=== PATIENT | male | born 1945 | race Caucasian/White ===

== ENCOUNTER 2017-02-18 14:09 | Inpatient (IN) | payer MEDICARE ==
[2017-02-18] MEDS ORDERED: Morphine INJ* 4 MG/ML 1 ML CARPUJECT IV ONE (14:22)
[2017-02-18] MEDS ORDERED: Ondansetron INJ* 2 MG/ML VIAL IV ONE (14:22)
[2017-02-18 15:06] LABS: Hematocrit 43 % (35-47); Hemoglobin 14.9 g/dl (12.0-16.0); Mean Corpuscular HGB Conc 35 g/dl (31-36); Mean Corpuscular Hemoglobin 31 pg (27-31); Mean Corpuscular Volume 89 fL (80-97); Mean Platelet Volume 9 um3 (7.4-10.4); Red Blood Count 4.88 10^6/ul (4.0-5.4); Red Cell Distribution Width 15 % (10.5-15); White Blood Count 10.8 10^3/ul (3.5-10.8)
[2017-02-18 15:21] LABS: BUN/Creatinine Ratio 19.1 (8-20); Calcium 8.8 mg/dL (8.6-10.3); EGFR African American 69.4 (>60); EGFR Non-African American 53.9 (>60); Potassium 4.4 mmol/L (3.5-5.0)
--- NOTE | 2017-02-18 15:40 | RAD ---
INDICATION: Traumatic right hip fracture COMPARISON: None TECHNIQUE: Multiple views right hip were acquired. FINDINGS: There is an intratrochanteric fracture of the right femur. There is mild distraction. No other fractures are evident. The SI joints and symphysis appear intact. IMPRESSION: INTERTROCHANTERIC FRACTURE RIGHT FEMUR
[2017-02-18] MEDS ORDERED: HYDROmorphone* 1 MG/ML 1 ML CARPUJECT IV SLOW PU ONE ×2 (16:14→18:22)
[2017-02-18] MEDS ORDERED: Dextrose 50% Syringe 50 ML* 25 GM/50 ML SYRINGE IV PUSH PRN (16:31)
[2017-02-18] MEDS ORDERED: Heparin VIAL(*) 5000 UNITS/ML VIAL (FIVE THOUSAND) SUBCUT ONE (16:38)
--- NOTE | 2017-02-18 17:11 | RAD ---
Indication: Preoperative assessment. Fall. RIGHT hip fracture. Comparison: No relevant prior exams available on the [facility] [place] for comparison. Technique: Supine chest 1627 hours Report: Suboptimal inspiration with mild bilateral subsegmental atelectasis. Grossly clear pleural spaces. Negative for cardiomegaly. Unremarkable central pulmonary vasculature and mediastinal contours. IMPRESSION: Suboptimal inspiration with mild subsegmental atelectasis.
--- NOTE | 2017-02-18 17:13 | RAD ---
Indication: Fall. RIGHT knee redness and swelling. RIGHT hip fracture. Comparison: No relevant prior exams available on the [facility] [place] for [place]. Technique: AP and crosstable lateral views RIGHT knee. 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 Minimal suprapatellar joint effusion. Negative for fracture or malalignment. Anterior soft tissue swelling. Mild osteophytosis. Negative for significant joint space narrowing. IMPRESSION: Small joint effusion and soft tissue swelling. Mild osteoarthritis. Negative for fracture.
[2017-02-18] MEDS ORDERED: Ondansetron INJ* 2 MG/ML VIAL IV PRN (17:34)
[2017-02-18] MEDS ORDERED: HYDROmorphone* 1 MG/ML 1 ML CARPUJECT ONE (18:12)
[2017-02-18] MEDS ORDERED: Acetaminophen TAB* 325 MG PO PRN (18:24)
[2017-02-18] MEDS: Insulin GLARGINE(*) 1 UNITS UNIT SUBCUT SCH (18:51)
[2017-02-18] MEDS ORDERED: HYDROmorphone* 1 MG/ML 1 ML CARPUJECT IV SLOW PU PRN ×2 (20:15)
[2017-02-18] MEDS: Terazosin CAP* 5 MG PO SCH (21:05)
[2017-02-18] MEDS: Hydroxychloroquine TAB* 200 MG PO SCH (21:05)
[2017-02-18] MEDS: Gabapentin CAP(*) 100 MG PO SCH (21:06)
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
[2017-02-18] MEDS: HYDROmorphone* 1 MG/ML 1 ML CARPUJECT IV SLOW PU PRN (23:46)
[2017-02-18] MEDS: NS 0.9% 1000 ML* 1,000 ML IV SCH (23:49)
--- NOTE | 2017-02-18 23:59 | CONS ---
CONSULTATION REPORT: DATE OF CONSULT: 02/17/17 HISTORY OF PRESENT ILLNESS: Jag is a very pleasant 71-year-old gentleman who has some mild hemiplegia. He fell today on a single step up in his dining room. He struck his right flank and has been admitted through the emergency room with a right intertrochanteric hip fracture. He did have a previous pelvis fracture a number of years ago, which was treated nonoperatively. He has had no significant pain or arthritic condition of the hip. PAST MEDICAL HISTORY: Jag has diabetes and some high blood pressure. MEDICATIONS: Include: 1. Atenolol. 2. Lipitor. 3. Furosemide. 4. Gabapentin. 5. Lantus and Humalog. 6. Lisinopril. 7. Zofran. 8. He is now on IM heparin. 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 Has a who is quite elderly and has some medical issues as well. PHYSICAL EXAM: Jag is alert and conversant and oriented and in no acute distress. His right lower extremity is flexed at the hip on a pillow, slightly shortened and slightly externally rotated. He has a good posterior and dorsal pulse and intact sensation to light touch, although he claims his primary care doctor has documented decreased sensation in the right and left lower extremities. Skin is intact at the thigh. DIAGNOSTIC STUDIES: His AP pelvis shows an intertrochanteric right hip fracture with displaced lesser trochanter. The lateral view is not discernible. IMPRESSION: The patient is a candidate for right intertrochanteric hip fracture fixation. He is to be admitted to the medical service n.p.o. after midnight. He will require monitoring of his blood glucose, some heparin anticoagulation, and EKG. [id number]/[facility] #: [id number] [facility] PS[facility] CENTERShira
[2017-02-19] MEDS: HYDROmorphone* 1 MG/ML 1 ML CARPUJECT IV SLOW PU PRN ×3 (02:06→09:49)
[2017-02-19] MEDS ORDERED: HYDROMORPHONE 2 MG/ML IV SLOW PU ONE (02:50)
[2017-02-19] MEDS ORDERED: Al Hydrox/Mg Hydrox/Simet LIQ* 30 ML UDC PO ONE (02:50)
[2017-02-19] MEDS: Insulin GLARGINE(*) 1 UNITS UNIT SUBCUT SCH ×3 (06:15→21:12)
[2017-02-19] MEDS ORDERED: LORazepam INJ* 2 MG/ML 1 ML VIAL IV PUSH ONE (06:34)
[2017-02-19 06:47] LABS: Hematocrit 43 % (42-52); Hemoglobin 14.5 g/dl (14.0-18.0); Mean Corpuscular HGB Conc 34 g/dl (31-36); Mean Corpuscular Hemoglobin 30 pg (27-31); Mean Corpuscular Volume 89 fL (80-94); Mean Platelet Volume 9 um3 (7.4-10.4); Red Blood Count 4.85 10^6/ul (4.0-5.4); Red Cell Distribution Width 15 % (10.5-15); White Blood Count 13.5 10^3/ul (3.5-10.8)
[2017-02-19 07:03] LABS: BUN/Creatinine Ratio 21.2 (8-20); Calcium 8.8 mg/dL (8.6-10.3); EGFR African American 78.3 (>60); EGFR Non-African American 60.9 (>60); Potassium 4.7 mmol/L (3.5-5.0)
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
[2017-02-19] MEDS ORDERED: Influenza VAC *QUAD* 2017-18* 0.5 ML SYRINGE IM ONE (09:00)
[2017-02-19] MEDS ORDERED: Lisinopril TAB* 10 MG PO SCH (09:00)
[2017-02-19] MEDS ORDERED: Furosemide TAB* 20 MG PO SCH (09:00)
[2017-02-19] MEDS ORDERED: Furosemide TAB* 40 MG PO SCH (09:00)
[2017-02-19] MEDS: Atorvastatin* 10 MG TAB PO SCH (09:41)
[2017-02-19] MEDS: Hydroxychloroquine TAB* 200 MG PO SCH ×2 (09:41→21:14)
[2017-02-19] MEDS: Atenolol TAB* 25 MG PO SCH (09:41)
[2017-02-19] MEDS: Gabapentin CAP(*) 100 MG PO SCH ×2 (09:41→21:12)
[2017-02-19] MEDS: Insulin LISPRO* 1 UNITS UNIT SUBCUT SCH ×3 (09:42→17:33)
--- NOTE | 2017-02-19 10:18 | RAD ---
INDICATION: Neck pain. Fall COMPARISON: None TECHNIQUE: Crosstable lateral AP and lateral were acquired FINDINGS: Bones: The two-view show no acute bony findings. Suggest completion of the series or CT imaging for persistent concern as indicated. There are arthritic findings from C5 through C7. C7 is not well evaluated due to shoulder artifact. Craniocervical junction: There is no dedicated AP view of the odontoid. Alignment: Normal Disc spaces: Minor lower cervical disc space narrowing Soft tissues: The prevertebral soft tissues are normal. IMPRESSION: 2 VIEW IMAGING OF CERVICAL SPINE DEMONSTRATES DEGENERATIVE CHANGE LOWER CERVICAL SPINE. SUGGEST COMPLETION OF THE SERIES AND/OR CT IMAGING INDICATED
[2017-02-19] MEDS: NS 0.9% 1000 ML* 1,000 ML IV SCH (11:09)
[2017-02-19] MEDS ORDERED: Buffered Lidocaine 0.9% SYRIN* 5 ML/SYR SYRINGE INTRADERM ONE (11:35)
[2017-02-19] MEDS ORDERED: Famotidine IV* 10 MG/ML 2 ML (20 mg) ONE (12:26)
[2017-02-19] MEDS ORDERED: Dexamethasone IV* 4 MG/ML 1 ML (4 MG) ONE (12:26)
[2017-02-19] MEDS ORDERED: Dexamethasone IV* 4 MG/ML 1 ML (4 MG) IV SLOW PU ONE (12:35)
[2017-02-19] MEDS ORDERED: Famotidine IV* 10 MG/ML 2 ML (20 mg) IV ONE (12:35)
[2017-02-19] MEDS ORDERED: KETAMINE HCL* 50 MG/ML 10 ML VIAL ONE (13:59)
[2017-02-19] MEDS ORDERED: Bupivacaine 0.5% SDV PF* 30 ML VIAL ONE (13:59)
[2017-02-19] MEDS ORDERED: fentaNYL* 50 MCG/ML 2 ML VIAL (100 MCG VIAL) ONE ×2 (13:59→19:23)
[2017-02-19] MEDS ORDERED: Phenylephrine IV* 40 MCG/ML 10 ML SYRINGE ONE (13:59)
[2017-02-19] MEDS ORDERED: Ondansetron INJ* 2 MG/ML VIAL ONE (13:59)
[2017-02-19] MEDS ORDERED: Midazolam* 1 MG/ML 5 ML VIAL (5 MG) ONE (13:59)
[2017-02-19] MEDS ORDERED: ceFOXitin 2 GM IVPREMIX* 2 GM/50 ML BAG ONE (14:02)
[2017-02-19] MEDS ORDERED: Propofol* 10 MG/ML 20 ML BTL IV PUSH ONE (14:02)
[2017-02-19] MEDS ORDERED: Lidocaine 1.5% EPI 1:200,000* 30 ML SDV ONE (14:37)
[2017-02-19] MEDS ORDERED: Ondansetron INJ* 2 MG/ML VIAL IV PRN (16:06)
[2017-02-19] MEDS ORDERED: HYDROmorphone* 1 MG/ML 1 ML CARPUJECT IV PRN (16:06)
[2017-02-19] MEDS ORDERED: DiMENhydriNATE IV* 50 MG/ML VIAL IV PUSH PRN (16:06)
[2017-02-19] MEDS ORDERED: Bisacodyl SUPP* 10 MG SUPP PR PRN (16:48)
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
--- NOTE | 2017-02-19 18:01 | RAD ---
INDICATION: RIGHT hip fracture. COMPARISON: February 18, 2017 radiographs. TECHNIQUE: 181 seconds fluoroscopy. FINDINGS: Spot images document placement of a gamma nail across the intratrochanteric fracture of the RIGHT femur. IMPRESSION: Procedural fluoroscopy. CPT II Codes: 6045F
[2017-02-19] MEDS: fentaNYL* 50 MCG/ML 2 ML VIAL (100 MCG VIAL) IV PRN ×2 (19:24→19:30)
[2017-02-19] MEDS: Docusate CAP* 100 MG PO SCH (21:12)
[2017-02-19] MEDS: Terazosin CAP* 5 MG PO SCH (21:12)
[2017-02-19] MEDS: oxyCODONE/Acetamin 5/325 MG* TAB PO PRN (22:29)
[2017-02-19] MEDS: ceFAZolin 1 GM VIAL(*) 1 GM in NS 0.9% 50 ML* 50 ML IVPB SCH (23:37)
[2017-02-20] MEDS: HYDROmorphone* 1 MG/ML 1 ML CARPUJECT IV SLOW PU PRN ×3 (01:10→19:48)
[2017-02-20 06:04] LABS: Hematocrit 36 % (42-52); Hemoglobin 12.3 g/dl (14.0-18.0)
[2017-02-20 06:20] LABS: BUN/Creatinine Ratio 22.9 (8-20); Calcium 8.5 mg/dL (8.6-10.3); EGFR African American 85.8 (>60); EGFR Non-African American 66.7 (>60); Potassium 4.7 mmol/L (3.5-5.0)
[2017-02-20] MEDS: ceFAZolin 1 GM VIAL(*) 1 GM in NS 0.9% 50 ML* 50 ML IVPB SCH ×2 (06:35→15:41)
[2017-02-20] MEDS: oxyCODONE/Acetamin 5/325 MG* TAB PO PRN ×3 (06:46→18:10)
[2017-02-20] MEDS: Insulin GLARGINE(*) 1 UNITS UNIT SUBCUT SCH ×2 (08:22→19:44)
[2017-02-20] MEDS: Insulin LISPRO* 1 UNITS UNIT SUBCUT SCH ×3 (08:24→18:11)
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
--- NOTE | 2017-02-20 09:03 | PN ---
Progress Note - Progress Note Date of Service: 02/20/17 SOAP: Subjective: []Patient is seen at bedside, having US for new IV access. Tolerating right hip pain. Denies SOB, CP, dizziness. Objective: [] Vital Signs Temp 99.5 F 02/20/17 07:49 Pulse 62 02/20/17 07:49 Resp 18 02/20/17 07:49 BP 131/48 02/20/17 07:49 Pulse Ox 94 02/20/17 07:49 Intake & Output 02/19/17 02/20/17 02/20/17 18:59 06:59 18:59 Intake Total 1999 1257 Output Total 2225 Balance 1999 - Intake: IV Fluids 1999 544 LR 1999 NS 544 IVPB 53 Cefazolin 53 Oral 660 Output: Mane 2225 Other: # Bowel Movements 0 Laboratory Results - last 24 hr 02/19/17 02/19/17 02/19/17 11:35 12:51 21:02 Hgb Hct Sodium Potassium Chloride Carbon Dioxide Anion Gap BUN Creatinine Est GFR ( Amer) Est GFR (Non-Af Amer) BUN/Creatinine Ratio Glucose POC Glucose (mg/dL) 148 H 145 H 115 H Calcium 02/20/17 02/20/17 02/20/17 05:55 05:55 07:31 Hgb 12.3 L Hct 36 L Sodium 137 Potassium 4.7 Chloride 107 Carbon Dioxide 27 Anion Gap 3 BUN 25 H Creatinine 1.09 Est GFR ( Amer) 85.8 Est GFR (Non-Af Amer) 66.7 BUN/Creatinine Ratio 22.9 H Glucose 167 H POC Glucose (mg/dL) 145 H Calcium 8.5 L Right hip dressings are dry and intact +DF/PF right ankle calf NT and soft sensation and circulation intact RLE Assessment: []s/p IM nail of IT fracture right hip POD #1 Plan: []PT/OT RLE WBAT Lovenox
[2017-02-20] MEDS: Hydroxychloroquine TAB* 200 MG PO SCH ×2 (10:56→19:47)
[2017-02-20] MEDS: Atenolol TAB* 25 MG PO SCH (10:56)
[2017-02-20] MEDS: Gabapentin CAP(*) 100 MG PO SCH ×2 (10:56→19:45)
[2017-02-20] MEDS: Docusate CAP* 100 MG PO SCH ×2 (10:56→19:47)
[2017-02-20] MEDS: Atorvastatin* 10 MG TAB PO SCH (10:57)
[2017-02-20] MEDS: Vitamin THERAPEUTIC TAB PO SCH (10:57)
[2017-02-20] MEDS: Enoxaparin(*) 40 MG/0.4 ML SYR SUBCUT SCH (11:01)
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
[2017-02-20] MEDS: Terazosin CAP* 5 MG PO SCH (19:46)
[2017-02-21] MEDS: oxyCODONE/Acetamin 5/325 MG* TAB PO PRN ×3 (05:23→21:04)
[2017-02-21 07:03] LABS: Hematocrit 32 % (42-52); Hemoglobin 11.1 g/dl (14.0-18.0)
--- NOTE | 2017-02-21 08:14 | PN ---
Progress Note - Progress Note Date of Service: 02/21/17 SOAP: Subjective: 71 y/o male s/p R hip ORIF with IM nailing 02/19/[address] Sawyer. Patient overall feelign well, c/o neck pain. no questions/ concerns. VSS overnight, afebrile. Objective: General- resting in chair, fatigued appearing MSK - surgical dressing removed L hip, 3 surgical incision c/d/i, amber in place, mild edema around distal 2 incision, minimal tenderness, mild ecchymosis around proximal incision. PT 2+ b/l, neg homans, + mild edema b/l LEs. + DF/ PF. Vital Signs Temp 98.5 F 02/21/17 03:44 Pulse 73 02/21/17 03:44 Resp 18 02/21/17 05:23 BP 144/45 02/21/17 03:44 Pulse Ox 94 02/21/17 03:44 Intake & Output 02/20/17 02/21/17 02/21/17 18:59 06:59 18:59 Intake Total 2155 650 Output Total 575 875 Balance 1580 -225 Intake: IV Fluids 1110 LR 1110 IVPB 55 LR 55 Oral 990 650 Output: Urine 575 875 Other: # Bowel Movements 0 0 Laboratory Results - last 24 hr 02/20/17 02/20/17 02/21/17 11:24 17:22 06:35 Hgb 11.1 L Hct 32 L POC Glucose (mg/dL) 223 H 152 H Assessment: 71 y/o male s/p R hip ORIF with IM nailing 02/19/[address] Sawyer. Plan: - DVT prophy- Lovenox in house - H&H stable - DM- controlled with insulin, hospitalist managing - Likely d/c when placement approved, cleared from ortho standpoint Active Medications Generic Name Dose Route Start Last Admin Trade Name Freq PRN Reason Stop Dose Admin Acetaminophen 650 mg 02/18/17 18:24 02/18/17 21:06 Tylenol Tab* PO 650 mg Q6H PRN Administration PAIN Atenolol 25 mg 02/19/17 09:00 02/20/17 10:56 Tenormin Tab* PO 25 mg DAILY SANG Administration Atorvastatin Calcium 10 mg 02/19/17 09:00 02/20/17 10:57 Lipitor* PO 10 mg DAILY SANG Administration Protocol Bisacodyl 10 mg 02/19/17 16:48 Dulcolax Supp* FL DAILY PRN constipation Dextrose 12.5 gm 02/18/17 16:31 D50w Syringe 50 Ml* IV PUSH .FOR FS < 60 - SS PRN FS < 60 Docusate Sodium 100 mg 02/19/17 21:00 02/20/17 19:47 Colace Cap* PO 100 mg BID SANG Administration Enoxaparin Sodium 40 mg 02/20/17 09:00 02/20/17 11:01 Lovenox(*) SUBCUT 40 mg Q24H SANG Administration Gabapentin 200 mg 02/18/17 21:00 02/20/17 19:45 Neurontin Cap(*) PO 200 mg BID SANG Administration Hydromorphone HCl 1 mg 02/18/17 23:41 02/20/17 19:48 Dilaudid Iv* IV SLOW PU 1 mg Q2H PRN Administration PAIN Hydroxychloroquine Sulfate 200 mg 02/18/17 21:00 02/20/17 19:47 Plaquenil Tab* PO 200 mg BID SANG Administration Lactated Ringer's 1,000 mls @ 100 mls/hr 02/19/17 17:00 02/20/17 08:58 Lactated Ringers 1000 Ml Bag* IV 100 mls/hr PER RATE SANG Administration Insulin Glargine 90 units 02/19/17 08:00 02/20/17 19:44 Lantus(*) SUBCUT 90 units 0800,2000 SANG Administration Insulin Human Lispro 0 units 02/19/17 07:30 02/20/17 18:11 Humalog* SUBCUT 3 units AC SANG Administration Protocol Lactulose 30 ml 02/19/17 16:48 Lactulose* PO Q6H PRN constipation Multivitamins 1 tab 02/20/17 09:00 02/20/17 10:57 Theragran Tab* PO 1 tab DAILY [facility] Administration Ondansetron HCl 4 mg 02/18/17 17:34 02/19/17 03:01 Zofran Inj* IV 4 mg Q4H PRN Administration NAUSEA Oxycodone/Acetaminophen 1 tab 02/19/17 16:51 02/20/17 18:10 Percocet 5/325 Tab* PO 1 tab Q4H PRN Administration PAIN Oxycodone/Acetaminophen 2 tab 02/19/17 16:51 02/21/17 05:23 Percocet 5/325 Tab* PO 2 tab Q6H PRN Administration PAIN Terazosin HCl 10 mg 02/18/17 21:00 02/20/17 19:46 Hytrin Cap* PO 10 mg BEDTIME SANG Administration <Henrietta Campos - Last Filed: 02/21/17 12:12> - Progress Note SOAP: Subjective: Right hip more comfortable. Patient doesn't like foam tape. Objective: NAD RLE: - dressing c/d/i - NVID Assessment: POD 2 R hip intertroch fracture ORIF with IMN Plan: - Lovenox x 4 weeks postop - WBAT RLE - PT, OOB - Pain control with narcotics - Discharge planning - F/u in clinic with me 2 week postop - Ancef 1gm x 3 doses postop - DM manage per medicine <Warner Ferguson - Last Filed: 02/21/17 14:15>
[2017-02-21] MEDS: Insulin LISPRO* 1 UNITS UNIT SUBCUT SCH ×3 (08:32→17:13)
[2017-02-21] MEDS: Atenolol TAB* 25 MG PO SCH (09:31)
[2017-02-21] MEDS: Atorvastatin* 10 MG TAB PO SCH (09:31)
[2017-02-21] MEDS: Docusate CAP* 100 MG PO SCH ×2 (09:31→21:05)
[2017-02-21] MEDS: Insulin GLARGINE(*) 1 UNITS UNIT SUBCUT SCH ×2 (09:31→19:32)
[2017-02-21] MEDS: Hydroxychloroquine TAB* 200 MG PO SCH ×2 (09:31→21:05)
[2017-02-21] MEDS: Vitamin THERAPEUTIC TAB PO SCH (09:31)
[2017-02-21] MEDS: Gabapentin CAP(*) 100 MG PO SCH ×2 (09:31→21:05)
[2017-02-21] MEDS: Enoxaparin(*) 40 MG/0.4 ML SYR SUBCUT SCH (09:39)
[2017-02-21] MEDS: HYDROmorphone* 1 MG/ML 1 ML CARPUJECT IV SLOW PU PRN (17:08)
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
[2017-02-21] MEDS: Terazosin CAP* 5 MG PO SCH (21:05)
[2017-02-21] MEDS: Metaxalone TAB* 800 MG PO PRN (21:42)
[2017-02-22] MEDS: oxyCODONE/Acetamin 5/325 MG* TAB PO PRN ×4 (03:48→20:06)
[2017-02-22 07:01] LABS: Hematocrit 29 % (42-52); Hemoglobin 9.9 g/dl (14.0-18.0)
[2017-02-22] MEDS: Insulin LISPRO* 1 UNITS UNIT SUBCUT SCH ×3 (08:16→18:00)
[2017-02-22] MEDS: Docusate CAP* 100 MG PO SCH ×2 (08:41→20:03)
[2017-02-22] MEDS: Hydroxychloroquine TAB* 200 MG PO SCH ×2 (08:41→20:04)
[2017-02-22] MEDS: Vitamin THERAPEUTIC TAB PO SCH (08:41)
[2017-02-22] MEDS: Gabapentin CAP(*) 100 MG PO SCH ×2 (08:41→20:05)
[2017-02-22] MEDS: Insulin GLARGINE(*) 1 UNITS UNIT SUBCUT SCH ×2 (08:41→20:07)
[2017-02-22] MEDS: Enoxaparin(*) 40 MG/0.4 ML SYR SUBCUT SCH (08:41)
[2017-02-22] MEDS: Atorvastatin* 10 MG TAB PO SCH (08:42)
[2017-02-22] MEDS: Atenolol TAB* 25 MG PO SCH (08:42)
[2017-02-22] MEDS: HYDROmorphone* 1 MG/ML 1 ML CARPUJECT IV SLOW PU PRN (11:37)
--- NOTE | 2017-02-22 11:46 | PN ---
Progress Note - Progress Note Date of Service: 02/22/17 SOAP: Subjective: 71 y/o male s/p R hip ORIF with IM nailing on 02/19/2017. Right hip more comfortable. He complains of neck pain. No other questions or concerns. VSS, afebrile Objective: General- resting in chair, fatigued appearing MSK - surgical dressing removed L hip, 3 surgical incision c/d/i, amber in place, mild edema around distal 2 incision, minimal tenderness, mild ecchymosis around proximal incision. PT 2+ b/l, neg homans, + mild edema b/l LEs. + DF/ PF. Vital Signs Temp 98.4 F 02/22/17 07:33 Pulse 64 02/22/17 07:33 Resp 18 02/22/17 11:37 BP 137/49 02/22/17 07:33 Pulse Ox 97 02/22/17 08:00 Intake & Output 02/21/17 02/22/17 02/22/17 18:59 06:59 18:59 Intake Total 450 870 410 Output Total 200 400 500 Balance 250 470 -90 Intake: Oral 450 870 410 Output: Urine 200 400 500 Other: Estimated Void Large # Bowel Movements 0 Estimated Stool Amount Large # Voids 1 Assessment: POD 3 R hip intertroch fracture ORIF with IMN Plan: - Awaiting PMRU placement - Lovenox x 4 weeks postop - WBAT RLE - PT, OOB - Pain control with narcotics - Discharge planning - F/u in clinic with me 2 week postop - Ancef 1gm x 3 doses postop - DM- controlled with insulin, hospitalist managing
[2017-02-22] MEDS: Metaxalone TAB* 800 MG PO PRN (13:07)
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
[2017-02-22] MEDS: Terazosin CAP* 5 MG PO SCH (20:05)
[2017-02-22] MEDS ORDERED: Senna TAB PO ONE (21:00)
[2017-02-23] MEDS: oxyCODONE/Acetamin 5/325 MG* TAB PO PRN ×6 (00:05→22:07)
[2017-02-23] MEDS: Atorvastatin* 10 MG TAB PO SCH (07:57)
[2017-02-23] MEDS: Docusate CAP* 100 MG PO SCH ×2 (07:57→19:40)
[2017-02-23] MEDS: Gabapentin CAP(*) 100 MG PO SCH ×2 (07:57→20:29)
[2017-02-23] MEDS: Insulin GLARGINE(*) 1 UNITS UNIT SUBCUT SCH ×2 (07:57→20:30)
[2017-02-23] MEDS: Hydroxychloroquine TAB* 200 MG PO SCH ×2 (07:57→21:18)
[2017-02-23] MEDS: Vitamin THERAPEUTIC TAB PO SCH (07:58)
[2017-02-23] MEDS: Enoxaparin(*) 40 MG/0.4 ML SYR SUBCUT SCH (07:58)
[2017-02-23] MEDS: Atenolol TAB* 25 MG PO SCH (07:58)
[2017-02-23 08:41] LABS: Hematocrit 28 % (42-52); Hemoglobin 9.7 g/dl (14.0-18.0); Mean Corpuscular HGB Conc 35 g/dl (31-36); Mean Corpuscular Hemoglobin 31 pg (27-31); Mean Corpuscular Volume 89 fL (80-94); Mean Platelet Volume 9 um3 (7.4-10.4); Red Blood Count 3.17 10^6/ul (4.0-5.4); Red Cell Distribution Width 15 % (10.5-15); White Blood Count 9.5 10^3/ul (3.5-10.8)
[2017-02-23] MEDS: Insulin LISPRO* 1 UNITS UNIT SUBCUT SCH ×3 (08:50→17:53)
[2017-02-23 08:56] LABS: BUN/Creatinine Ratio 24.7 (8-20); Calcium 8.4 mg/dL (8.6-10.3); EGFR African American 98.1 (>60); EGFR Non-African American 76.3 (>60); Potassium 4.1 mmol/L (3.5-5.0)
--- NOTE | 2017-02-23 09:07 | PN ---
Progress Note - Progress Note Date of Service: 02/23/17 SOAP: Subjective: 71 y/o male s/p R hip ORIF with IM nailing on 02/19/2017. He complains of neck pain and some right hip pain. No other questions or concerns. VSS, afebrile Objective: General- resting in chair, fatigued appearing MSK - surgical dressing c/d/i, minimal tenderness. PT 2+ b/l, neg homans, + mild edema b/l LEs. + DF/PF. Vital Signs Temp 98.4 F 02/23/17 03:57 Pulse 67 02/23/17 03:57 Resp 18 02/23/17 07:57 BP 159/57 02/23/17 03:57 Pulse Ox 95 02/23/17 03:57 Intake & Output 02/22/17 02/23/17 02/23/17 18:59 06:59 18:59 Intake Total 1170 760 Output Total 1100 850 225 Balance 70 -90 -225 Intake: Oral 1170 760 Output: Urine 1100 850 225 Other: Estimated Void Medium # Bowel Movements 0 Estimated Stool Amount Medium # Voids 1 Assessment: POD 3 R hip intertroch fracture ORIF with IMN Plan: - Awaiting PMRU placement - Lovenox x 4 weeks postop - WBAT RLE - PT, OOB - Pain control with narcotics - Discharge planning - F/u in clinic with Dr. Ferguson 2 week postop - DM- controlled with insulin, hospitalist managing
--- NOTE | 2017-02-23 12:01 | ED ---
Drake Panda Alfonso, scribed for Kev Canchola MD on 02/18/17 at 1430 . Adult Trauma - HPI Summary HPI Summary: This patient is a 71 year old F BIBA to [facility] with a chief complaint of right hip pain since approximately one hour ago. He took a step down into the kitchen , slipped, and fell. The patient rates the pain 8/10 in severity. Symptoms aggravated by movement. Symptoms alleviated by nothing. Patient reports right side paralysis (chronic). Patient denies dizziness, lightheadedness, SOB, and CP. PMHx includes DM, HTN, and TBI. - History of Current Complaint Chief Complaint: EDExtremityLower Stated Complaint: FALL HIP PAIN Time Seen by Provider: 02/18/17 14:17 Hx Obtained From: Patient Mechanism of Injury: Fall Onset/Duration: Started Hours Ago - 1, Traumatic, Still Present Onset of Pain: Prior to Arrival Onset Severity: Moderate Current Severity: Moderate Pain Intensity: 8 Pain Scale Used: 0-10 Numeric Location: Abdomen/Pelvis - Right hip Aggravating Factor(s): Movement Alleviating Factor(s): Nothing Associated Signs & Symptoms: Positive: Other: - right side paralysis (chronic). Patient denies dizziness, lightheadedness, SOB, and CP. - Allergy/Home Medications Allergies/Adverse Reactions: Allergies Allergy/AdvReac Type Severity Reaction Status Date / Time No Known Allergies Allergy Verified 02/18/17 15:12 PMH/Surg Hx/FS Hx/Imm Hx Endocrine/Hematology History: Reports: Hx Diabetes Cardiovascular History: Reports: Hx Hypertension Neurological History: Reports: Other Neuro Impairments/Disorders - Traumatic brain injury Infectious Disease History: No Infectious Disease History: Denies: Traveled Outside the [place] in Last 30 Days - Family History Known Family History: Positive: Unknown - ADOPTED - Social History Alcohol Use: None Substance Use Type: Reports: None Hx Tobacco Use: No Review of Systems Negative: Fever, Chills Negative: Erythema Negative: Sore Throat Negative: Chest Pain Negative: Shortness Of Breath, Cough Negative: Abdominal Pain, Vomiting, Nausea Negative: dysuria, hematuria Positive: Other - Right hip pain Negative: Rash Neurological: Other - right side paralysis (chronic); negative dizziness, lightheadedness All Other Systems Reviewed And Are Negative: Yes Physical Exam Triage Information Reviewed: Yes Vital Signs On Initial Exam: Initial Vitals Temp Pulse Resp BP Pulse Ox 97.2 F 49 14 166/61 98 02/18/17 14:19 02/18/17 14:19 02/18/17 14:19 02/18/17 14:19 02/18/17 14:19 Vital Signs Reviewed: Yes Appearance: Positive: Well-Appearing, No Pain Distress, Well-Nourished Skin: Positive: Warm, Dry, Other - Scabbed over wounds at lower extremities. Head/Face: Positive: Other - Normocephalic; No Racoons eyes; No battles sign; No abrasion; No contusion; No hemotympanum; No maxilla facial tenderness or instability; Dentition are smooth; No dental trauma; No trismus Eyes: Positive: Other: - EOM normal, PERRL ENT: Positive: Normal ENT inspection Neck: Positive: Other: - Trachea is midline. No stridor; No JVD; No step off; No posterior cervical spine tenderness Respiratory/Lung Sounds: Positive: Other - Effort normal; Breath sounds normal; Equal chest rise; No flail segment; No rib tenderness; No sternal tenderness Cardiovascular: Positive: Other - Rhythm regular, rate normal Heart sounds normal; Intact distal pulses; The pedal pulses are 2+ and symmetric. Radial pulses are 2+ and symmetric. Abdomen Description: Positive: Other: - Soft, Appearance normal. No distension; No tenderness; No palpable pulsatile mass; No Cullens sign; No Lacy-Turners sign Musculoskeletal: Positive: Other - Unable to lift right leg. Right anterior and lateral hip tenderness. Full ROM and no tenderness at ankles, shoulders, elbows and knees; No joint swelling; No vertebral body tenderness; No paraspinal tenderness; No step off or deformity of the spine; Pelvis is stable to lateral compression and rock Neurological: Positive: Alert, Oriented to Person Place, Time Psychiatric: Positive: Affect/Mood Appropriate Diagnostics - Vital Signs Vital Signs Temp Pulse Resp BP Pulse Ox 02/18/17 14:19 97.2 F 49 14 166/61 98 - Laboratory Result Diagrams: 02/18/17 14:54 02/18/17 14:54 Lab Statement: Any lab studies that have been ordered have been reviewed, and results considered in the medical decision making process. - Radiology Hip X-Ray Radiology Interpretation Completed By: ED Physician - intertrochanteric hip fracture of the right side., Radiologist - INTERTROCHANTERIC FRACTURE RIGHT FEMUR - EKG 1442 Cardiac Rate: Bradycardia - 51 BPM EKG Rhythm: Sinus Bradycardia EKG Interpretation: No STEMI. Adult Trauma Course/Dx - Course Assessment/Plan: This patient is a 71 year old F BIBA to [facility] with a chief complaint of right hip pain since approximately one hour ago. He took a step down into the kitchen, slipped, and fell. The patient rates the pain 8/10 in severity. Symptoms aggravated by movement. Symptoms alleviated by nothing. Patient reports right side paralysis (chronic). Patient denies dizziness, lightheadedness, SOB, and CP. PMHx includes DM, HTN, and TBI. An EKG reveals sinus bradycardia. Hip X-Ray reveals intertrochanteric hip fracture of the right side. Consulted Dr. Cid (hospitalist) who agrees to admit. The patient is agreeable with this plan. - Diagnoses Provider Diagnoses: Intertrochanteric fracture of right hip - Physician Notifications Discussed Care Of Patient With: Veda Cid Time Discussed With Above Provider: 15:35 Instructed by Provider To: Other - Consulted Dr. Cid (hospitalist) who agrees to admit. Discharge - Discharge Plan Condition: Stable Disposition: ADMITTED TO [facility] Referrals: Non Staff,Doctor [Primary Care Provider] - The documentation as recorded by the Drake hyatt Alfonso accurately reflects the service I personally performed and the decisions made by me, Kev Canchola MD.
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
[2017-02-23] MEDS ORDERED: Lisinopril TAB* 10 MG PO ONE (20:00)
[2017-02-23] MEDS: Terazosin CAP* 5 MG PO SCH (20:29)
[2017-02-23] MEDS ORDERED: Magnesium Hydroxide LIQ* 30 ML UDC PO ONE (21:00)
[2017-02-23] MEDS ORDERED: Albuterol 2.5 MG/3 ML NEB.SOL* (0.083%) INH PRN (21:34)
[2017-02-24] MEDS: Metaxalone TAB* 800 MG PO PRN ×3 (00:33→23:49)
[2017-02-24] MEDS: oxyCODONE/Acetamin 5/325 MG* TAB PO PRN ×4 (04:41→23:06)
--- NOTE | 2017-02-24 07:51 | PN ---
Progress Note - Progress Note Date of Service: 02/24/17 SOAP: Subjective: 71 y/o male s/p R hip ORIF with IM nailing 02/19/[address] Sawyer. Patient feeling well, reports feeling confused this AM, thinking it was dinner instead of breakfast but feeling well, alert now. NO complaints. VSS afebrile overnight Objective: General- Well appearing, resting in bed comfortably MSK- SUrgical incision c/d/i, mild resolving ecchymosis around incision site, + DF/ PF b/l, neg homans b/l, sensation grossly intact. Vital Signs Temp 97.6 F 02/24/17 03:32 Pulse 61 02/24/17 03:32 Resp 17 02/24/17 04:41 BP 146/48 02/24/17 03:32 Pulse Ox 93 02/24/17 03:32 Intake & Output 02/23/17 02/24/17 02/24/17 18:59 06:59 18:59 Intake Total 660 1020 Output Total 225 525 Balance 435 495 Intake: Oral 660 1020 Output: Urine 225 525 Other: Estimated Void Large # Bowel Movements 1 1 Estimated Stool Amount Large Large # Voids 1 Laboratory Results - last 24 hr 02/23/17 02/23/17 02/23/17 08:14 08:14 12:18 WBC 9.5 RBC 3.17 L Hgb 9.7 L Hct 28 L MCV 89 MCH 31 MCHC 35 RDW 15 Plt Count 134 L MPV 9 Neut % (Auto) 75.4 Lymph % (Auto) 8.1 L [place] % (Auto) 8.1 Eos % (Auto) 7.7 H Baso % (Auto) 0.7 Absolute Neuts (auto) 7.2 Absolute Lymphs (auto) 0.8 L Absolute Monos (auto) 0.8 Absolute Eos (auto) 0.7 H Absolute Basos (auto) 0.1 Absolute Nucleated RBC 0.01 Nucleated RBC % 0.1 Sodium 136 Potassium 4.1 Chloride 105 Carbon Dioxide 28 Anion Gap 3 BUN 24 Creatinine 0.97 Est GFR ( Amer) 98.1 Est GFR (Non-Af Amer) 76.3 BUN/Creatinine Ratio 24.7 H Glucose 127 H POC Glucose (mg/dL) 209 H Calcium 8.4 L 02/23/17 16:37 WBC RBC Hgb Hct MCV MCH MCHC RDW Plt Count MPV Neut % (Auto) Lymph % (Auto) [place] % (Auto) Eos % (Auto) Baso % (Auto) Absolute Neuts (auto) Absolute Lymphs (auto) Absolute Monos (auto) Absolute Eos (auto) Absolute Basos (auto) Absolute Nucleated RBC Nucleated RBC % Sodium Potassium Chloride Carbon Dioxide Anion Gap BUN Creatinine Est GFR ( Amer) Est GFR (Non-Af Amer) BUN/Creatinine Ratio Glucose POC Glucose (mg/dL) 226 H Calcium Assessment: Stable 71 y/o male s/p R hip ORIF with IM nailing 02/19/[address] Sawyer. Plan: - Awaiting placement - Follow up with Dr. Ferguson before 03/05 - DM control per hospiatlists - DVT prophylaxis- lovenox in house Active Medications Generic Name Dose Route Start Last Admin Trade Name Freq PRN Reason Stop Dose Admin Acetaminophen 650 mg 02/18/17 18:24 02/18/17 21:06 Tylenol Tab* PO 650 mg Q6H PRN Administration PAIN Albuterol 2.5 mg 02/23/17 21:34 Ventolin 2.5 Mg/3 Ml Neb.Sary* INH Q2H PRN SOB/WHEEZING Atenolol 25 mg 02/19/17 09:00 02/23/17 07:58 Tenormin Tab* PO 25 mg DAILY [facility] Administration Atorvastatin Calcium 10 mg 02/19/17 09:00 02/23/17 07:57 Lipitor* PO 10 mg DAILY [facility] Administration Protocol Bisacodyl 10 mg 02/19/17 16:48 Dulcolax Supp* [place] DAILY PRN constipation Dextrose 12.5 gm 02/18/17 16:31 D50w Syringe 50 Ml* IV PUSH .FOR FS < 60 - SS PRN FS < 60 Docusate Sodium 100 mg 02/19/17 21:00 02/23/17 19:40 Colace Cap* PO 100 mg BID [facility] Administration Enoxaparin Sodium 40 mg 02/20/17 09:00 02/23/17 07:58 Lovenox(*) SUBCUT 40 mg Q24H [facility] Administration Gabapentin 200 mg 02/18/17 21:00 02/23/17 20:29 Neurontin Cap(*) PO 200 mg BID [facility] Administration Hydroxychloroquine Sulfate 200 mg 02/18/17 21:00 02/23/17 21:18 Plaquenil Tab* PO 200 mg BID [facility] Administration Insulin Glargine 90 units 02/19/17 08:00 02/23/17 20:30 Lantus(*) SUBCUT 90 units 0800,1999 [facility] Administration Insulin Human Lispro 0 units 02/19/17 07:30 02/23/17 17:53 Humalog* SUBCUT 6 units AC [facility] Administration Protocol Lactulose 30 ml 02/19/17 16:48 02/23/17 19:43 Lactulose* PO 30 ml Q6H PRN Administration constipation Lisinopril 10 mg 02/24/17 09:00 Prinivil Tab* PO DAILY [facility] Metaxalone 800 mg 02/21/17 21:27 02/24/17 00:33 Skelaxin Tab* PO 800 mg BID PRN Administration SPASMS Multivitamins 1 tab 02/20/17 09:00 02/23/17 07:58 Theragran Tab* PO 1 tab DAILY [facility] Administration Ondansetron HCl 4 mg 02/18/17 17:34 02/19/17 03:01 Zofran Inj* IV 4 mg Q4H PRN Administration NAUSEA Oxycodone/Acetaminophen 1 tab 02/19/17 16:51 02/21/17 21:04 Percocet 5/325 Tab* PO 1 tab Q4H PRN Administration PAIN Oxycodone/Acetaminophen 2 tab 02/22/17 16:08 02/24/17 04:41 Percocet 5/325 Tab* PO 2 tab Q4H PRN Administration PAIN Terazosin HCl 10 mg 02/18/17 21:00 02/23/17 20:29 Hytrin Cap* PO 10 mg BEDTIME [facility] Administration
[2017-02-24] MEDS: Insulin GLARGINE(*) 1 UNITS UNIT SUBCUT SCH ×2 (08:11→20:38)
[2017-02-24] MEDS: Insulin LISPRO* 1 UNITS UNIT SUBCUT SCH ×4 (08:13→18:49)
[2017-02-24 08:32] LABS: Hematocrit 28 % (42-52); Hemoglobin 9.9 g/dl (14.0-18.0)
[2017-02-24 08:41] LABS: Comments Flag Yes
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
[2017-02-24] MEDS: Atorvastatin* 10 MG TAB PO SCH (09:02)
[2017-02-24] MEDS: Atenolol TAB* 25 MG PO SCH (09:02)
[2017-02-24] MEDS: Hydroxychloroquine TAB* 200 MG PO SCH ×2 (09:04→20:37)
[2017-02-24] MEDS: Gabapentin CAP(*) 100 MG PO SCH ×2 (09:04→20:37)
[2017-02-24] MEDS: Docusate CAP* 100 MG PO SCH ×2 (09:04→20:38)
[2017-02-24] MEDS: Enoxaparin(*) 40 MG/0.4 ML SYR SUBCUT SCH (09:06)
[2017-02-24] MEDS: Lisinopril TAB* 10 MG PO SCH (09:10)
[2017-02-24] MEDS: Vitamin THERAPEUTIC TAB PO SCH (09:10)
[2017-02-24] MEDS ORDERED: diPHENhydraMINE IV* 50 MG/ML 1 ml VIAL (BENADRYL) SLOW PUSH ONE (11:52)
[2017-02-24] MEDS ORDERED: diPHENhydraMINE IV* 50 MG/ML 1 ml VIAL (BENADRYL) SLOW PUSH PRN (11:52)
[2017-02-24] MEDS: Terazosin CAP* 5 MG PO SCH (20:37)
[2017-02-25] MEDS: oxyCODONE/Acetamin 5/325 MG* TAB PO PRN ×4 (06:11→22:09)
[2017-02-25] MEDS: Enoxaparin(*) 40 MG/0.4 ML SYR SUBCUT SCH (08:45)
[2017-02-25] MEDS: Lisinopril TAB* 10 MG PO SCH (08:46)
[2017-02-25] MEDS: Hydroxychloroquine TAB* 200 MG PO SCH ×2 (08:46→20:57)
[2017-02-25] MEDS: Gabapentin CAP(*) 100 MG PO SCH ×2 (08:46→20:57)
[2017-02-25] MEDS: Atenolol TAB* 25 MG PO SCH (08:46)
[2017-02-25] MEDS: Docusate CAP* 100 MG PO SCH ×2 (08:46→20:57)
[2017-02-25] MEDS: Vitamin THERAPEUTIC TAB PO SCH (08:47)
[2017-02-25] MEDS: Metaxalone TAB* 800 MG PO PRN (08:52)
--- NOTE | 2017-02-25 08:57 | PN ---
Progress Note - Progress Note Date of Service: 02/25/17 SOAP: Subjective: resting comfortably with no complaints Objective: Vital Signs Temp Pulse Resp BP Pulse Ox 98.3 F 60 18 142/51 100 02/25/17 07:26 02/25/17 07:26 02/25/17 08:52 02/25/17 07:26 02/25/17 08:00 Laboratory Last Values WBC 9.5 10^3/ul (3.5-10.8) 02/23/17 08:14 RBC 3.17 10^6/ul (4.0-5.4) L 02/23/17 08:14 Hgb 9.9 g/dl (14.0-18.0) L 02/24/17 08:00 Hct 28 % (42-52) L 02/24/17 08:00 MCV 89 fL (80-94) 02/23/17 08:14 MCH 31 pg (27-31) 02/23/17 08:14 MCHC 35 g/dl (31-36) 02/23/17 08:14 RDW 15 % (10.5-15) 02/23/17 08:14 Plt Count 134 10^3/ul (150-450) L 02/23/17 08:14 MPV 9 um3 (7.4-10.4) 02/23/17 08:14 Neut % (Auto) 75.4 % (38-83) 02/23/17 08:14 Lymph % (Auto) 8.1 % (25-47) L 02/23/17 08:14 [place] % (Auto) 8.1 % (1-9) 02/23/17 08:14 Eos % (Auto) 7.7 % (0-6) H 02/23/17 08:14 Baso % (Auto) 0.7 % (0-2) 02/23/17 08:14 Absolute Neuts (auto) 7.2 10^3/ul (1.5-7.7) 02/23/17 08:14 Absolute Lymphs (auto) 0.8 10^3/ul (1.0-4.8) L 02/23/17 08:14 Absolute Monos (auto) 0.8 10^3/ul (0-0.8) 02/23/17 08:14 Absolute Eos (auto) 0.7 10^3/ul (0-0.6) H 02/23/17 08:14 Absolute Basos (auto) 0.1 10^3/ul (0-0.2) 02/23/17 08:14 Absolute Nucleated RBC 0.01 10^3/ul 02/23/17 08:14 Nucleated RBC % 0.1 02/23/17 08:14 INR (Anticoag Therapy) 0.90 (0.89-1.11) 02/18/17 14:54 APTT 28.1 seconds (26.0-36.3) 02/18/17 14:54 Sodium 136 mmol/L (133-145) 02/23/17 08:14 Potassium 4.1 mmol/L (3.5-5.0) 02/23/17 08:14 Chloride 105 mmol/L (101-111) 02/23/17 08:14 Carbon Dioxide 28 mmol/L (22-32) 02/23/17 08:14 Anion Gap 3 mmol/L (2-11) 02/23/17 08:14 BUN 24 mg/dL (6-24) 02/23/17 08:14 Creatinine 0.97 mg/dL (0.67-1.17) 02/23/17 08:14 Est GFR ( Amer) 98.1 (>60) 02/23/17 08:14 Est GFR (Non-Af Amer) 76.3 (>60) 02/23/17 08:14 BUN/Creatinine Ratio 24.7 (8-20) H 02/23/17 08:14 Glucose 127 mg/dL (70-100) H 02/23/17 08:14 POC Glucose (mg/dL) 150 mg/dL (70-100) H 02/25/17 07:36 Calcium 8.4 mg/dL (8.6-10.3) L 02/23/17 08:14 incision: c/d/i PE: NVI Assessment: s/p IM nail right femur(02/19/17) Plan: 1) PT/OT 2) continue DVT prophylaxis 3) hospitalist co-managing 4) awaiting rehab placement <Lucia Ren - Last Filed: 02/25/17 08:56> - Progress Note SOAP: Subjective: Complains of right hip pain, improved. Improved BM with discontinuation of eggs. Objective: RLE: - incision c/d/i - dried serosanguinous drainage on dressing - only minimal TTP about the hip area - NVID - 4x4 covering anterior lower legs (bilaterally) at the site of some venous stasis skin compromise Assessment: POD 6 ORIF R hip intertroch fx with IMN Plan: - Lovenox x 4 weeks postop - Pain control - WBAT RLE, physical therapy, out of bed - Awaiting placement <Warner Ferguson - Last Filed: 02/25/17 19:08>
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
[2017-02-25] MEDS: Insulin LISPRO* 1 UNITS UNIT SUBCUT SCH ×6 (09:39→18:23)
[2017-02-25] MEDS: Insulin GLARGINE(*) 1 UNITS UNIT SUBCUT SCH ×2 (09:40→20:58)
[2017-02-25] MEDS: Atorvastatin* 10 MG TAB PO SCH (09:42)
--- NOTE | 2017-02-25 13:39 | DS ---
CC: [facility] in [place] * DATE OF ADMISSION: 02/18/2017. DATE OF DISCHARGE: 02/25/2017. PROVIDER: Marty Danielson NP. ATTENDING PHYSICIAN: Dr. Rosibel Euceda * (as dictated by Marty Danielson NP). CONSULTING PROVIDER: Dr. Warner Ferguson, Orthopedics. PRIMARY CARE PHYSICIAN: [facility] in [place]. PRIMARY DISCHARGE DIAGNOSIS: Right intratrochanteric hip fracture, status post open reduction internal fixation with intramedullary nail. SECONDARY DISCHARGE DIAGNOSES: 1. History of traumatic brain injury 47 years ago with subsequent right-sided paralysis that has mostly resolved. 2. Type 2 diabetes. 3. Hypertension. 4. Benign prostatic hypertrophy. 5. Psoriasis. MEDICATIONS AT DISCHARGE: 1. Gabapentin 200 mg b.i.d. 2. Lisinopril 20 mg daily. 3. Lovastatin 40 mg daily. 4. Terazosin 10 mg at bedtime. 5. Plaquenil 200 mg b.i.d. 6. Furosemide 20 mg daily. 7. Atenolol 25 mg daily. 8. Percocet one to two tabs q.4 hours prn pain. 9. Multivitamin one tab daily. 10. Skelaxin 800 mg b.i.d. prn spasm. 11. Lispro insulin per sliding scale protocol. 12. Lantus 90 units subcu at 0800 and 2000. 13. Lovenox 40 mg subcu q.24 hours. 14. Docusate 100 mg b.i.d. 15. Acetaminophen 650 mg q.6 hours prn. Note: The patient was previously on Prednisone 4 mg. I am unsure of why the patient was taking Prednisone and if this was a chronic prescription or a temporary prescription. The patient was unable to clarify. He has not been receiving it here in the hospital. The patient was also on Meloxicam reportedly , though he has not had it here in the hospital and is on hold in the recovery period from his surgery. He was also taking Furosemide 40 mg at nighttime in addition to the 20 mg in the daytime; however, the patient's blood pressures have not allowed for him to receive this much Lasix and has only resumed 20 mg daily. HOSPITAL COURSE OF STAY: For full details, please refer to the history and physical provided by PAVAN Corley on admission. In summary, Mr. Nogueira is a 71-year-old male who has a history of frequent falls at home. Unfortunately, he sustained a right hip fracture after a mechanical fall. He was admitted and underwent an ORIF on 02/19/2017. Since that time, the patient has been able to participate with PT and OT for rehab. Pain has been well- controlled with Percocet and antispasmodics. He is recommended for further subacute rehab prior to return to home in order to help the patient be more independent with his ADL's and to prevent any further falls. During his time here, the patient had very labile blood sugars. The patient was previously on 160 units of Levemir insulin b.i.d. at home which we did cut back to 90 units b.i.d. here in the hospital as his blood sugars have ranged significantly here in the hospital. His insulin could be increased as necessary to achieve better blood glucose control. PHYSICAL EXAMINATION: At the time of discharge, the patient is alert and oriented times three. He is aware of the situation and responding appropriately. HEENT: Head is normocephalic, atraumatic. Pupils are equal. Oral mucosa appears moist. Neck is supple. Lungs are clear to auscultation bilaterally. Cardiac: S1, S2 heart sounds. The patient has a soft systolic murmur. Regular rate and rhythm. Distal pulses are symmetric. No lower extremity edema noted, except some mild edema round the area of the surgical incision. Abdomen is soft, nontender, nondistended. Bowel sounds are present in all four quadrants. Extremities: There is a right lateral incision to the right thigh. It is clean, dry and intact. No drainage noted and the woody skin shows some ecchymosis, but otherwise no concern for infection. Skin: Old ecchymotic areas noted from previous falls. OUTPATIENT FOLLOW-UP NEEDS: The patient will need to follow-up with Dr. Ferguson within two weeks and should call for an appointment. He should be maintained on Lovenox subcu daily for four weeks postop. Please refer to the Ortho discharge instructions as included in the discharge paperwork. DIET: Consistent carbohydrate, heart-healthy diet. ACTIVITY: As tolerated. CONDITION: Improved, stable. DISPOSITION: To [facility] in [place]. Time spent on this discharge was approximately 40 minutes. Again, this is only a brief summary to the patient's hospital course of stay. For full details, please refer to the full medical record. If you have any further questions or need further assistance, please feel free of contact me at [phone]. MARTY DANIELSON NP [id number]/[facility] #: [id number] DONELL
[2017-02-25] MEDS: Terazosin CAP* 5 MG PO SCH (20:57)
[2017-02-26] MEDS: Insulin LISPRO* 1 UNITS UNIT SUBCUT SCH (07:26)
[2017-02-26] MEDS: Vitamin THERAPEUTIC TAB PO SCH (07:37)
[2017-02-26] MEDS: Insulin GLARGINE(*) 1 UNITS UNIT SUBCUT SCH (07:37)
[2017-02-26] MEDS: Hydroxychloroquine TAB* 200 MG PO SCH (07:37)
[2017-02-26] MEDS: Docusate CAP* 100 MG PO SCH (07:37)
[2017-02-26] MEDS: Lisinopril TAB* 10 MG PO SCH (07:37)
[2017-02-26] MEDS: Enoxaparin(*) 40 MG/0.4 ML SYR SUBCUT SCH (07:37)
[2017-02-26] MEDS: Atenolol TAB* 25 MG PO SCH (07:38)
[2017-02-26] MEDS: Atorvastatin* 10 MG TAB PO SCH (07:38)
[2017-02-26] MEDS: Gabapentin CAP(*) 100 MG PO SCH (07:38)
[2017-02-26 07:39] VITALS: BP 133/51
[2017-02-26] MEDS: oxyCODONE/Acetamin 5/325 MG* TAB PO PRN (07:40)
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
== END 2017-02-26 09:00 | DRG 482 ==
LOC: EDSEX → ED 14:09 → SSU 15:52
PROVIDERS: ADMIT Hospitalist; ATTEND Internal Medicine
PROC: 0QS606Z Reposition Right Upper Femur with Intramedullary Internal Fixation Device, Open Approach (ICD-10-PCS; principal; 2017-02-19 10:45)
PROC: 3E0234Z Introduction of Serum, Toxoid and Vaccine into Muscle, Percutaneous Approach (ICD-10-PCS; 2017-02-20)
DX: S72.141A Displaced intertrochanteric fracture of right femur, initial encounter for closed fracture (principal); E11.40 Type 2 diabetes mellitus with diabetic neuropathy, unspecified; I10 Essential (primary) hypertension; L40.9 Psoriasis, unspecified; N40.0 Benign prostatic hyperplasia without lower urinary tract symptoms; W01.0XXA Fall on same level from slipping, tripping and stumbling without subsequent striking against object, initial encounter; S72.121A Displaced fracture of lesser trochanter of right femur, initial encounter for closed fracture; R47.81 Slurred speech; M50.30 Other cervical disc degeneration, unspecified cervical region; R29.6 Repeated falls; K59.00 Constipation, unspecified; R42 Dizziness and giddiness; M77.9 Enthesopathy, unspecified; E66.9 Obesity, unspecified; R13.10 Dysphagia, unspecified; Z68.33 Body mass index [BMI] 33.0-33.9, adult; Z83.6 Family history of other diseases of the respiratory system; Z87.820 Personal history of traumatic brain injury; Z91.041 Radiographic dye allergy status; Z87.891 Personal history of nicotine dependence; Y92.008 Other place in unspecified non-institutional (private) residence as the place of occurrence of the external cause; Z79.01 Long term (current) use of anticoagulants; Z23 Encounter for immunization
CPT/HCPCS: 36415; 71010; 72040; 76001; 80048; 85014; 85018; 85025; 85027; 85610; 85730; 90686; 93005; 94760; A9270-GY; C1713; C1776; J0690; J0694; J1100; J1170; J1200; J1644; J1650; J2060; J2250; J2270; J2405; J2704; J3010